=== PATIENT | male | born 1965 | race African-American/Black ===

== ENCOUNTER 2020-02-10 05:30 | Emergency (ER) | payer BC ==
[~2020-02-10] VITALS: Ht 167.6 cm; Wt 95.0 kg
[2020-02-10] MEDS ORDERED: IBUPROFEN 600MG TABLET PO ONE (07:15)
[2020-02-10 08:45] VITALS: BP 152/95
== END 2020-02-10 09:16 | disposition home or self-care (01) ==
LOC: ER 05:30
DX: M25.512 Pain in left shoulder (principal); R20.2 Paresthesia of skin; M79.645 Pain in left finger(s)
CPT/HCPCS: 73030; 99283

== ENCOUNTER 2022-06-28 12:37 | Emergency (ER) | payer BC ==
[~2022-06-28] VITALS: Ht 167.6 cm; Wt 91.0 kg
[2022-06-28 15:07] LABS: HEMATOCRIT. 40.1 % (42.0-52.0); HEMOGLOBIN. 14.1 g/dL (14.0-18.0); MEAN CORPUSCULAR HEMOGLOBIN 29.4 pg (28.0-32.0); MEAN CORPUSCULAR VOLUME 83.7 fL (80.0-94.0); MEAN PLATELET VOLUME 8.5 fl (7.4-10.4); PLATELET 178 x1000/uL (130-400); RED CELL DISTRIBUTION WIDTH 14.5 % (11.6-14.6)
[2022-06-28 15:15] LABS: CHLORIDE 106 mEq/L (98-107)
[2022-06-28 16:11] LABS: CLARITY URINE CLEAR (CLEAR); COLOR URINE YELLOW (YELLOW); KETONES URINE 1+ (NEGATIVE); LEUKOCYTE ESTERASE URINE NEGATIVE (NEGATIVE); NITRITE URINE NEGATIVE (NEGATIVE); OCCULT BLOOD URINE NEGATIVE (NEGATIVE); PROTEIN URINE 1+ (NEGATIVE); SPECIFIC GRAVITY URINE 1.019 (1.005-1.030)
[2022-06-28] MEDS ORDERED: DIATR MEGLU/DIATRIZOATE SOLN 30ML PO NR (17:15)
[2022-06-28] MEDS ORDERED: DIATR MEGLU/DIATRIZOATE SOLN 30ML ONE (17:50)
[2022-06-28 19:51] LABS: PLATELET ESTIMATE NORMAL
[2022-06-28] MEDS ORDERED: METR-167 PO (20:16)
[2022-06-28] MEDS ORDERED: CIPR-263 PO (20:16)
[2022-06-28 21:00] VITALS: BP 133/76
== END 2022-06-28 21:02 | disposition home or self-care (01) ==
LOC: ER 12:37
DX: K57.92 Diverticulitis of intestine, part unspecified, without perforation or abscess without bleeding (principal); E11.9 Type 2 diabetes mellitus without complications; I10 Essential (primary) hypertension
CPT/HCPCS: 36415; 74176; 80053; 81003; 82962; 83605; 83690; 85025; 99284; Q9963

== ENCOUNTER 2023-10-08 02:24 | Emergency (ER) | payer BC ==
[~2023-10-08] VITALS: Ht 167.6 cm; Wt 95.0 kg
[~2023-10-08 02:24] MED LIST: CIPR-263 PO; METR-167 PO
[2023-10-08 02:31] VITALS: O2SAT 97
[2023-10-08 03:05] LABS: CHLORIDE 105 mEq/L (98-107); POTASSIUM 3.4 mEq/L (3.5-5.1); SODIUM 138 mEq/L (136-145)
[2023-10-08 03:06] LABS: CARBON DIOXIDE 25 mEq/L (21-32)
[2023-10-08 03:08] LABS: BASOPHILS % 0.4 % (0.0-2.0); EOSINOPHILS % 1.3 % (0.0-5.0); HEMATOCRIT. 39.5 % (42.0-52.0); HEMOGLOBIN. 13.9 g/dL (14.0-18.0); LYMPHOCYTES % 21.6 % (20.0-50.0); MEAN CORPUSCULAR HEMOGLOBIN 29.4 pg (28.0-32.0); MEAN CORPUSCULAR HGB CONC 35.1 g/dL (31.0-37.0); MEAN CORPUSCULAR VOLUME 83.9 fL (80.0-94.0); MEAN PLATELET VOLUME 8.9 fl (7.4-10.4); MONOCYTES % 7.7 % (2.0-8.0); PLATELET 191 x1000/uL (130-400); RED BLOOD CELL COUNT 4.71 mill/uL (4.7-6.1); RED CELL DISTRIBUTION WIDTH 14.6 % (11.6-14.6); WHITE BLOOD COUNT 7.5 x1000/uL (4.5-11.0)
[2023-10-08 03:11] LABS: CREATININE 0.9 mg/dL (0.6-1.3); GLUCOSE 161 mg/dL (70-105); UREA NITROGEN BLOOD 9 mg/dL (9-23)
[2023-10-08 03:13] LABS: ALANINE AMINOTRANSFERASE 27 IU/L (10-49); ALBUMIN 4.3 g/dL (3.2-4.8); ASPARTATE AMINOTRANSFERASE 20 IU/L (<34); BILIRUBIN TOTAL 1.2 mg/dL (0.1-1.0); PROTEIN TOTAL 7.1 g/dL (6.0-8.3)
[2023-10-08 09:08] LABS: TROPONIN I HIGH SENSITIVITY 4 ng/L (3.0-53)
[2023-10-08] MEDS ORDERED: FLUT9.9S BOTHNSTRLS (11:08)
[2023-10-08 11:15] VITALS: BP 144/79; PULSE 86; RESP 17; TEMP 97.5
[2023-10-08] MEDS ORDERED: IOHEXOL-350 100 ML BOTTLE ONE (17:42)
== END 2023-10-08 15:12 | disposition home or self-care (01) ==
LOC: ER 02:24
DX: R51.9 Headache, unspecified (principal); R07.89 Other chest pain; R06.02 Shortness of breath; E11.9 Type 2 diabetes mellitus without complications; I10 Essential (primary) hypertension
CPT/HCPCS: 80053; 83735; 85025; 84484; 36415; 71045; 70496; 70450; 93005; 99285; Q9967; Z7610